=== PATIENT | female | born 1955 | race Caucasian/White ===

== ENCOUNTER 2018-11-15 08:40 | Day surgery (SDC) | payer OTHER ==
[~2018-11-15] VITALS: Ht 160 cm; Wt 68.9 kg
[~2018-11-15 08:40] MED LIST: ATORVASTATIN; LASIX; LOSA50TA14 PO; PAIN MED; RANI150T5 PO
[2018-11-15 09:38] VITALS: Ht 160 cm; Wt 68.9 kg
[2018-11-15] MEDS ORDERED: LIDOCAINE 4% SOLUTION 50 ML BTL ONE (09:41)
[2018-11-15] MEDS ORDERED: LABETALOL HCL 20MG INJ ONE (09:45)
[2018-11-15 09:46] VITALS: BP 199/92; PULSE 64; RESP 18
[2018-11-15] MEDS ORDERED: FENTAnyl 50 MCG/ML VIAL ONE (10:29)
[2018-11-15] MEDS ORDERED: MIDAZOLAM 1 MG/ML 2 ML INJ ONE (10:29)
[2018-11-15 10:55] VITALS: BP 152/80; PULSE 68; RESP 17
== END 2018-11-15 17:50 | disposition home or self-care (01) ==
LOC: GIL 08:40
PROVIDERS: ATTEND Internal Medicine Gastroenterology
DX: Z12.11 Encounter for screening for malignant neoplasm of colon (principal); D12.2 Benign neoplasm of ascending colon; K29.50 Unspecified chronic gastritis without bleeding; K20.8 Other esophagitis; I10 Essential (primary) hypertension
CPT/HCPCS: 43239; 45380; 88305; 88312; 88313; J2250; J3010; Z7610